=== PATIENT | female | born 1970 | race Caucasian/White ===

== ENCOUNTER → 2023-10-25 09:26 | Outpatient (REF) | payer BC, SELFPAY | LOC: WDC 09:26 | PROVIDERS: ATTENDING PHYSICIAN Family Medicine | DX: N63.31 Unspecified lump in axillary tail of the right breast (principal); R22.31 Localized swelling, mass and lump, right upper limb | CPT/HCPCS: 76642; 77062; 77066 ==

== ENCOUNTER → 2024-02-20 09:40 | Outpatient (REF) | payer BC, SELFPAY | LOC: RAD 09:40 | PROVIDERS: ATTENDING PHYSICIAN Physician Assistant Medical; FAMILY PHYSICIAN Family Medicine | DX: R05.9 Cough, unspecified (principal) | CPT/HCPCS: 71046 ==

== ENCOUNTER → 2024-05-21 12:17 | Outpatient (REF) | payer BC, SELFPAY | LOC: RAD 12:17 | PROVIDERS: ATTENDING PHYSICIAN Nurse Practitioner Primary Care | DX: R05.3 Chronic cough (principal); R61 Generalized hyperhidrosis | CPT/HCPCS: 71260; Q9967 ==

== ENCOUNTER 2024-10-15 10:48 | Emergency (ER) | payer BC, SELFPAY ==
[2024-10-15 10:51] VITALS: BP 171/104
[2024-10-15 11:25] VITALS: BMI 37.1
--- NOTE | 2024-10-15 11:28 | EDRN ---
Addendum entered by Arlette Garcia RN 10/15/24 11:31:
unsure if pt had LOC as fell w/out witnesses.
Original Note:
Pt was on a swing and base of swing under her collapsed and support of swing hit her in the posterior head. Pt has 2 bumps to back of head. Happened yesterday. No LOC, No blood thinners. Tingling in the head and feeling of cold though when head
felt area is warm. mild headache 08/23. Pt not feeling 'right' moving slowly and feeling exhausted.
[2024-10-15 11:37] VITALS: BP 185/109
--- NOTE | 2024-10-15 12:01 | EDRN ---
Cris MURO in room w/ pt at this time.
--- NOTE | 2024-10-15 12:08 | ED.GENMED ---
History of Present Illness
General
Chief Complaint: Head Injury
Source: patient
Exam Limitations: none
Time Seen by Provider: 10/15/24 11:59
History of Present Illness
History of Present Illness:
54yoF with a history of hypertension presenting with friend for evaluation after a head injury. Patient was sitting on an outdoor swing yesterday afternoon around 3pm. The swing started to break and she fell backwards striking her head against the
ground. She does not believe she lost consciousness. She had a mild headache yesterday but headache is increasing today. She also feels multiple lumps on her scalp. She denies any neck pain, visual changes, vomiting. She does not take any blood
thinners.
Past History
Past History
ED Past Medical History: HTN, Hypercholesterolemia and Other (Polycystic ovary syndrome)
ED Past Surgical History: Orthopedic
Social History
Tobacco: Non-smoker
Alcohol: None
Personal: Other ()
Living: with family
Employment: Not employed
Phy Exam
General Physical Exam
General Presentation: well appearing and no apparent distress
General Skin: warm and dry
General Habitus: normal
General Mental: alert
ENT Exam
ENT Exam: TM's normal (No hemotympanum ), normocephalic and other (No external signs of head trauma. No cervical spine tenderness.)
Pulmonary Exam
Pulmonary Exam: no respiratory distress
Neurological Exam
Neurological Exam: alert
Kevin Coma Scale
Eye Opening: Spontaneous
Verbal Response: Oriented
Motor Response: Obeys Commands
GCS Total Score: 15
Skin Exam
Skin Exam: normal color and warm/dry
Psychiatric Exam
Psychiatric Exam: normal mood/affect
Course
Orders/Labs/Results
Orders:
Orders
10/15/24 12:06
Acetaminophen [Tylenol] 1,000 mg PO NOW STA
10/15/24 12:07
CT Head W/o Iv Contrast Urgent
Comment:
Reason For Exam: head injury
Vital Signs
Initial and Last Documented VS:
Initial Vital Signs
Temp Pulse Resp BP Pulse Ox
97.6 F 70 19 171/104 97
10/15/24 10:51 10/15/24 10:51 10/15/24 10:51 10/15/24 10:51 10/15/24 10:51
Last Documented Vital Signs
Temp Pulse Resp BP Pulse Ox
97.6 F 69 16 168/99 100
10/15/24 10:51 10/15/24 13:24 10/15/24 13:24 10/15/24 13:24 10/15/24 13:24
MDM/Problems Addressed
Differential Diagnosis Includes:
54yoF here after a head injury yesterday. Fell off a wooden swing and struck back of head. Unknown LOC. C/o worsening headache. Not on blood thinners. She is hypertensive with otherwise stable vitals. She is awake, alert, with a GCS of 15. No
external signs of head trauma. Differential diagnosis includes but is not limited to: closed head injury, concussion, intracranial hemorrhage, skull fracture
Initial ED plan: Check CT head.
Final assessment: CT negative for acute findings. No indication for hospitalization. Supportive care discussed. Advised follow-up with PCP and ED return precautions reviewed. Patient discharged in stable condition.
*Critical Care Note
Total Time (30-74mins, 75-104mins- exclusive of procedures): Not Applicable
ED Attending Note
-
Portions of this chart may have been created with voice recognition software.� Occasional wrong word or��sound alike� substitutions may have occurred due to the inherent limitations of voice recognition software.
Discharge Plan
Departure
Patient Disposition: Home (Routine Discharge)
Date of Disposition: 10/15/24
Time of Disposition: 13:45
Patient with high blood pressure during this ER visit?: Yes
Discharge Problem:
Closed head injury
Instructions: Head Injury in Adults (DC)
Prescriptions:
No Action
ibuprofen 200 MG tablet
400 mg PO Q6HPRN PRN (Reason: pain)
multivitamin with folic acid [Tab-A-Manda] 1 TABLET tablet
1 tab PO DAILY
Labetalol
2 tab PO HS
Referrals:
Alannah Mills DO [Family Provider, Family Practice]
Activity Restrictions/Additional Instructions:
Rest for the next 48 hours. Drink plenty of fluids and rest. Take Tylenol and ibuprofen as needed for headaches.
Please follow-up with your family doctor. Return to the ER with any worsening symptoms including confusion.
Interventions
Interventions:
*Risk Screen - Suicide Last Done: 10/15/24 10:51
*General Assessment Last Done: 10/15/24 11:25
*Neglect/Abuse Screening Last Done: 10/15/24 10:51
*ED- Fall Risk Assessment Last Done: 10/15/24 11:25
*ED COVID-19 Vaccine History Last Done: 10/15/24 11:25
*Nursing Disposition Last Done: 10/15/24 13:53
ED- Neurological Assessment Last Done: 10/15/24 11:26
ED-Skin Assessment Last Done: 10/15/24 11:26
Discharge Date and Time
Discharge Date/Time: 10/15/24 13:53
Print Language: PAP[place]
[2024-10-15] MEDS: TYLENOL 1000 MG PO (12:12)
[2024-10-15 13:24] VITALS: BP 168/99
--- NOTE | 2024-10-15 13:40 | EDRN ---
TT sent to Cris Kan that CT is resulted at this time.
--- NOTE | 2024-10-15 13:43 | EDRN ---
Cris MURO in room w/ pt.
== END 2024-10-15 13:53 | disposition home or self-care (01) ==
LOC: EMR 10:48
PROVIDERS: EMERGENCY PHYSICIAN Emergency Medicine; FAMILY PHYSICIAN Family Medicine
DX: S09.90XA Unspecified injury of head, initial encounter (principal); W09.1XXA Fall from playground swing, initial encounter; I10 Essential (primary) hypertension; E78.00 Pure hypercholesterolemia, unspecified; E28.2 Polycystic ovarian syndrome
CPT/HCPCS: 99284; 70450